=== PATIENT | female | born 1940 | race Caucasian/White ===

== ENCOUNTER 2019-05-21 08:28 | Inpatient (IN) | payer MEDICARE, MEDICAID ==
[~2019-05-21] VITALS: Ht 162.6 cm; Wt 85.0 kg
--- NOTE | ~2019-05-21 | HEMODYNAMI ---
PATIENT:ELAN KEYS MEDICAL RECORD: [id number] : 40 LOCATION:D.CAT ADMISSION DATE: 05/21/19 Generatedon:05/21/201911:31 Patient name: ELAN KEYS Patient #: [id number] SSN: [id number] : 1940 Date of study: 05/21/2019 Page: Of Hemodynamic Procedure Report Patient Data Patient Demographics Procedure consent was obtained First Name: ELAN Gender: Female Last Name: LUDMILA : 1940 Middle Initial: L Age: 79 year(s) Patient #: [id number] Race: Unknown SSN: [id number] Additional ID: [id number] Contact details [address]: [address] [place] [address] State: [place] City: [place] Zip code: [address] Past Medical History Allergies Allergen Reaction Date Comments Reported Other allergy 05/21/2019 iodine/pcn/adhesive tape Admission Admission Data Admission Date: 05/21/2019 Admission Time: 8:28 Arrival Date: 05/21/2019 Arrival Time: 0:00 Admit Source: Other Insurance Payor: Medicare [facility] #: [id number] Height (in.): 64.17 BSA: 1.91 (m2) Height (cm.): 163 BMI: 31.99 (kg/m2) Weight (lbs.): 187.39 Weight (kg.): 85 Lab Results Lab Result Date: 05/21/2019 Lab Result Time: 0:00 Biochemistry Name Units Result Min Max BUN mg/dl 42 --(----)-* 7 18 Creatinine mg/dl 2.2 --(----)-* 0.6 1.3 eGFR ml/min 23 *-(----)-- 90 120 NONAFRICAN CBC Name Units Result Min Max Hematocrit % 25.3 *-(----)-- 42 54 Hemoglobin g/dl 7.8 *-(----)-- 13.5 17.5 Procedure Procedure Types Cath Procedure Diagnostic Procedure [facility] w/Coronaries w/Grafts Sedation Charges Moderate Sedation up to 15 minutes Procedure Description Procedure Date Procedure Date: 05/21/2019 Procedure Start Time: 11:17 Procedure End Time: 11:29 Procedure Staff Name Function Ravindra Rodríguez MD Performing Physician Ariadna Rincon RT Monitor Kelsey Chago RT Scrub Scooter Haile RN Nurse Procedure Data Cath Procedure Fluoroscopy Diagnostic fluoroscopy Total fluoroscopy Time: 3.1 time: 3.1 min min Diagnostic fluoroscopy Total fluoroscopy dose: 484 dose: 484 mGy mGy Contrast Material Contrast Material Type Amount (ml) Isovue 300 37 Entry Location Entry Primary Successful Side Size Upsize Upsize Entry Closure Succes sful Closure Location (Fr) 1 (Fr) 2 (Fr) Remarks Device Remarks Femoral Right 5 Fr Exoseal artery Estimated blood loss: 5 ml Diagnostic catheters Device Type Used For End Catheter Placement MULTIPACK Pigtail 5 Fr LV Angiography catheter MULTIPACK JL 4.0 5Fr Left Coronary catheter Angiography MULTIPACK 3DRC 5Fr Procedure catheter DIAGNOSTIC AR2 MOD 5 Fr Procedure catheter ([id number]) Procedure Complications No complications Procedure Medications Medication Administration Route Dosage 0.9% NaCl I.V. 150 ml/hr Oxygen etCO2 Nasal cannula 2 l/min Heparin Flush Bag added to field 2 bags (1000units/500ml NS) Lidocaine 2% added to field 20 Versed I.V. 1 mg Fentanyl I.V. 50 mcg Versed I.V. 0.5 mg Hemodynamics Rest BSA: 1.91 (m2) O2 Consumption: Estimated: 259.76 (ml/min) O2 Consumption indexed : Estimated:136 (ml/min/m) Pre Cath Intra NCS Post Cath Vital Signs Time Heart Resp SPO2 etCO2 NIBP Rhythm Pain Sedation Rate (ipm) (%) (mmHg) (mmHg) Status Level (bpm) 11:12:00 74 14 93 0 124/53(78) NSR 0 (11) 10(A) , No pain 11:16:16 76 14 94 0 108/49(70) NSR 0 (11) 10(A) , No pain 11:20:36 71 12 95 0 115/59(87) NSR 0 (11) 10(A) , No pain 11:24:58 76 14 93 0 110/57(83) NSR 0 (11) 10(A) , No pain 11:29:16 73 14 93 0 117/64(81) NSR 0 (11) 10(A) , No pain Medications Time Medication Route Dose Verified Delivered Reason Notes Eff ectiveness by by 11:08:53 0.9% NaCl I.V. 150 Scooter Scooter Per ml/hr Mic Haile physician RN RN 11:09:06 Oxygen etCO2 2 Scooter Scooter for low 02 Nasal l/min Lorigan Lorigan sats cannula RN RN 11:09:19 Heparin Flush added 2 Scooter Scooter used for Bag to bags Lorigan Mic procedure (1000units/500ml field RN RN NS) 11:09:31 Lidocaine 2% added 20ml Scooter Scooter for local to vial Lorigan Lorigan anesthetic field RN RN 11:14:00 Versed I.V. 1 mg Scooter Scooter for Lorigan Lorigan sedation RN RN 11:14:09 Fentanyl I.V. 50 Scooter Scooter for mcg Lorigan Lorigan sedation RN RN 11:18:32 Versed I.V. 0.5 Scooter Scooter for mg Lorigan Lorigan sedation RN yam curer Log Time Note 10:27:31 Informed consent obtained and on chart 10:27:49 Procedure Status Elective Heart Cath (OP). 10:27:50 Time tracking: Regular hours (M-F 7:00 - 5:00) 10:27:53 Plan of Care:Hemodynamics will remain stable., Cardiac rhythm will remain stable., Comfort level will be maintained., Respiratory function will remain adequate., Patient/ family verbilizes understanding of procedure., Procedure tolerated without complication., Recovers from procedure without complications.. 10:27:54 Scooter Haile RN sent for patient. Start room use. 10:28:01 H&P Date Dictated: 05/15/2019 Within 30 days and on chart., H&P Addendum completed by physician on day of procedure. (MUST COMPLETE FOR ALL OUTPATIENTS). 10:43:14 Patient allergic to Other allergyiodine/pcn/adhesive tape 10:43:23 Is the patient allergic to Iodine/contrast media? has an adverse reaction, needs pre and post treatment with fluids. 10:43:28 Patient diabetic? Yes. 10:43:39 Risk of Mortality: 1.1 10:43:44 Risk of blood transfusion: 35.1 10:43:50 Risk of GEETA: 12.7 10:46:28 Arrival Date: 05/21/2019 12:00:00 AM 10:46:43 Admit Source: Other 10:46:48 Insurance Payor : Medicare 10:46:52 Patient Height : 64.17 inches 10:46:56 Patient Weight : 187.39 lbs 10:48:53 Lab Result : BUN 42 mg/dl 10:48:53 Lab Result : Hematocrit 25.3 % 10:48:53 Lab Result : eGFR NONAFRICAN 23 ml/min 10:48:53 Lab Result : Creatinine 2.2 mg/dl 10:48:53 Lab Result : Hemoglobin 7.8 g/dl 10:51:31 Patient received from Pre/Post Procedure Room to CCL 1 Alert and oriented. Tansferred to table in Supine position. 10:51:34 Warm blankets applied, and sulaiman hugger turned on for patient comfort. 10:51:35 Correct patient and procedure confirmed by team. 10:51:35 ECG and BP/O2 sat monitors applied to patient. 10:53:02 Pre-procedure instructions explained to patient. 10:53:03 Pre-op teaching completed and patient verbalized understanding. 10:53:08 Family in patients room. 10:53:10 Patient NPO since Midnight. 11:03:47 ACC Patient presents with Stable Angina CCS Anginal Class 4--Inability to carry out any physical activity w/o angina. Angina may occur at rest. 11:04:07 Is patient on blood thinner?No 11:04:14 Was the patient premedicated? No fluids have been given. 11:04:46 If diabetic: On Metformin? No 11:04:49 ----Pre-sedation anethsthesia assessment.---- 11:04:53 Previous problem with sedation/anesthesia? No ? 11:04:56 Snore? Yes 11:04:59 Sleep apnea? No 11:05:02 Deviated septum? No 11:05:04 Opens mouth fully? Yes 11:05:07 Sticks out tongue? Yes 11:05:11 Airway obstruction? No ? 11:05:15 Dentures? Yes ?both in. 11:05:53 IV patent on arrival in right antecubital with 0.9% NaCl at [facility]. 11:06:21 Lab results completed and on chart. 11:06:32 Stress Test: no; N/A ? 11:06:45 Pre procedure: right dorsailis pedis pulse Doppler 11:06:53 Right groin area was prepped with chlora-prep and draped in sterile fashion 11:06:54 Alarms reviewed by R. N. 11:06:55 Sharps counted by scrub and verified by R.N. 11:08:44 Use device set Femoral Dx 11:08:46 ACIST Syringe (00363) opened to sterile field. 11:08:47 Bag Decanter (2002S) opened to sterile field. 11:08:48 Medline Cath Pack ([id number]) opened to sterile field. 11:08:49 ACIST Hand Control (08734) opened to sterile field. 11:08:50 ACIST Manifold (97031) opened to sterile field. 11:08:51 DIAGNOSTIC Multipack 5Fr catheter set ([id number]) opened to sterile field. 11:08:52 Tegaderm 4 x 4 (1626W) opened to sterile field. 11:08:53 0.9% NaCl 150 ml/hr I.V. was administered by Scooter Haile RN; Per physician; Verbal order read back and verified. 11:08:54 SHEATH 5FR [place] (XUO466) opened to sterile field. 11:08:54 EMERALD Guide Wire (382-924) opened to sterile field. 11:09:06 Oxygen 2 l/min etCO2 Nasal cannula was administered by Scooter Haile RN; for low 02 sats; Verbal order read back and verified. 11:09:19 Heparin Flush Bag (1000units/500ml NS) 2 bags added to field was administered by Scooter Haile RN; used for procedure; Verbal order read back and verified. 11:09:31 Lidocaine 2% 20ml vial added to field was administered by Scooter Haile RN; for local anesthetic; Verbal order read back and verified. 11:09:43 Vital chart was started 11:09:57 Zero performed for pressure channel P1 11:10:29 Zero performed for pressure channel P1 11:10:48 Physician arrived 11:10:49 --------ALL STOP TIME OUT------ 11:10:50 Final Timeout: patient, procedure, and site verified with staff and physician. All members of the team are in agreement. 11:10:53 Right groin site verified by team. 11:11:00 Fire Safety Assessment: A--An alcohol-based skin anteseptic being used preoperatively., C--Open oxygen or nitrous oxide is being used., D--An ESU, laser, or fiber-optic light is being used. 11:11:08 Physical assessment completed. ASA score P 2 - A patient with mild systemic disease as per Ravindra Rodríguez MD. 11:11:14 4) 15-29 [place]ley reduced kidney function. 11:11:19 Maximum allowable contrast dose (3.7 X eGFR X 0.75)64 ml. 11:11:43 Sedation plan: IV Moderate Sedation Medication:Versed, Fentanyl 11:14:00 Versed 1 mg I.V. was administered by Scooter Haile RN; for sedation; Verbal order read back and verified. 11:14:09 Fentanyl 50 mcg I.V. was administered by Scooter Haile RN; for sedation; Verbal order read back and verified. 11:16:54 Procedure started. 11:16:54 Full Disclosure recording started 11:17:21 Local anesthetic to right femoral artery with Lidocaine 2% by Ravindra Rodríguez MD.INITIAL ACCESS ONLY 11:17:50 A 5 Fr sheath was inserted into the Right Femoral artery 11:18:32 Versed 0.5 mg I.V. was administered by Scooter Haile RN; for sedation; Verbal order read back and verified. 11:18:40 A MULTIPACK Pigtail 5 Fr catheter was advanced over the wire and used for LV Angiography. 11:20:00 Catheter removed. 11:20:08 A MULTIPACK JL 4.0 5Fr catheter was advanced over the wire and used for Left Coronary Angiography. 11:20:18 LCA angiography performed. 11:20:23 Injector settings: Ml/sec: 3, Volume: 6, 11:20:33 Catheter removed. 11:21:14 A MULTIPACK 3DRC 5Fr catheter was advanced over the wire and used for Procedure. 11:21:44 LINK to LAD angiography performed. 11:22:10 Catheter removed. 11:22:26 A DIAGNOSTIC AR2 MOD 5 Fr catheter ([id number]) was advanced over the wire and used for Procedure. 11:23:07 SVG to RCA angiography performed. 11:23:47 SVG to Circ angiography performed. 11:23:51 Catheter removed. 11:24:06 EXOSEAL 5Fr (EX500) opened to sterile field. 11::24 Sheath removed intact; hemostasis achieved with Exoseal to the Right Femoral artery. 11:24:43 Procedure ended.(Physican Out) 11::54 Fluoroscopy time 03.10 minutes. 11:26:02 Contrast amount:Isovue 300 37ml. 11::06 Maximum allowable dose exceeded? No. 11:: Sharps counted by scrub and verified by R.N. 11:: Fluoroscopy dose: 484 mGy 11:: Flurop Dose total: 484 11:: Dose Area Product 88918 mGy/cm. 11:26:37 Insertion/operative site no bleeding no hematoma. 11:26:46 Post-op/insertion site Right Femoral artery dressed using a 4 x 4 and Tegaderm. 11:26:53 Post right femoral artery:stable 11::57 Post Procedure Pulses reassessed and unchanged 11:27:02 Post-procedure physical assessment completed. ASA score P 2 - A patient with mild systemic disease as per Ravindra Rodríguez MD. 11:27:07 Post procedure rhythm: unchanged. 11:27:23 Estimated blood loss: 5 ml 11:27:25 Post procedure instruction explained to patient.Patient verbalizes understanding. 11:27:26 Patient needs reinforcement of post procedure teaching. 11:28:06 Procedure type changed to Cath procedure, Diagnostic procedure, LHC, LHC w/Coronaries w/Grafts, Sedation Charges, Moderate Sedation up to 15 minutes 11::49 Procedure and supply charges have been captured, reviewed, submitted and are correct. 11:29:29 Procedure Complication : No complications 11:29:32 Vital chart was stopped 11::[address] [facility] Findings: mild to moderate CAD (<70%) 11:29:38 Operative report dictated upon procedure completion. 11:29:39 See physician's report for complete and final results. 11:29:41 Report given to Pre/Post Procedure Room. 11:29:46 Patient transfered to Pre/Post Procedure Room with Stretcher. 11:29:49 Procedure ended. 11::49 Full Disclosure recording stopped 11:29:52 End room use (Document Last) Device Usage Item Name Manufacture Quantity Catalog Hospital Part Current Minimal L ot# / Number Charge Number Stock Stock Serial# Code ACIST Acist 1 32569 [id number] 489464 269251 20 Syringe Medical (23270) Systems Inc Bag Microtek 1 2001S 686623 80684 498197 5 Decanter Medical Inc. () Medline Medline 1 [id number] 906098 88910 266608 5 Cath Pack ([id number]) ACIST Hand Acist 1 25603 320046 030652 485055 5 Control Medical (13963) Systems Inc ACIST Acist 1 62289 250733 785507 570249 5 Manifold Medical (00215) Systems Inc DIAGNOSTIC Cardinal 1 [id number] 665381 10286 689895 30 Multipack Health 5Fr catheter set (NT4285) Tegaderm 4 3M 1 1626W 668206 167361 386530 5 x 4 (1626W) SHEATH 5FR Terumo 1 [id number] 547470 104787 460741 5 [place] (DTO269) EMERALD Cardinal 1 502-455 807308 167839 550600 5 Guide Wire Health (502-455) MULTIPACK Cardinal 1 812733 5 Pigtail 5 Health Fr catheter MULTIPACK Cardinal 1 031819 5 JL 4.0 5Fr Health catheter MULTIPACK Cardinal 1 346600 5 3DRC 5Fr Health catheter DIAGNOSTIC Cardinal 1 [id number] 155574 786729 247122 20 AR2 MOD 5 Health Fr catheter (903179D) EXOSEAL 5Fr Cardinal 1 EX500 990063 819281 840133 10 (EX500) Health Signature Audit [place] Stage Time Signature Unsigned Intra-Procedure 05/21/2019 Ariadna 11:30:53 AM Sergey RT(R) (CV) Intra-Procedure 05/21/2019 Scooter 11:31:22 AM Mic SARMIENTO Intra-Procedure 05/21/2019 Ravindra Rodríguez 11:31:[address] [place] [address]
--- NOTE | ~2019-05-21 | EC ---
PATIENT:ELAN KEYS DATE OF SERVICE: 05/21/19 SEX: F MEDICAL RECORD: [id number] DATE OF : [birth year] LOCATION:D.MS [place] AGE OF PATIENT: 79 ADMISSION DATE: 05/21/19 REFERRING PHYSICIAN: INTERPRETING PHYSICIAN: JUDITH RODRÍGUEZ MD ECHOCARDIOGRAM REPORT ECHO CHARGES 4 ECHO COMPLETE Date: 05/21/19 CLINICAL DIAGNOSIS: DYSPNEA/ANGINA/CAD H/O AVR ECHOCARDIOGRAPHIC MEASUREMENTS (adult normal given) AC root (d.<3.7cm) 2.5 cm LV Septum d (<1.2 cm> 0.7 cm Valve Excursion 0.6 cm LV Septum (systole) 1.0 cm Left Atria (s.<4.0cm> 5.1 cm LVPW d(<1.2cm) 0.9 cm RV (d.<2.3cm) 2.4 cm LVPW (sytole) 1.8 cm LV diastole(<5.6CM) 6.1 cm MV E-F(>70mm/sec) cm LV systole 4.2 cm LVOT Diameter 1.6 cm MV exc.(>10mm) cm Est.ejection fraction (50-75%) % DOPPLER: LVIT cm/sec A 156 cm/sec E 181 cm/sec LA cm/sec RVSP 51.0 mmHg LVOT 100 cm/sec AOP1/2T m/s Asc. Ao 287 cm/sec RVOT 52.0 cm/sec RA cm/sec PA 122 cm/sec AV Gradient Peak 33.0 mmHg AV Mean 18.0 mmHg AV Area 0.6 cm MV Gradient Peak 22.2 mmHg MV Mean 9.0 mmHg MV Area cm COMMENTS: Engineering Secretary: 1 AMERICA MCCALLUMOE Play Leader: 1 Dr. Rodríguez TAPE# PACS Pericardial Effusion N DATE OF SERVICE: FINDINGS: 1. Left ventricular chamber size is mildly dilated. Left ventricular systolic function is moderately reduced at 35% to 40%. 2. Left atrium is enlarged at 5.1 cm. Right atrium and right ventricular chamber sizes are within normal limits. 3. 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 The valve area calculates to 0.6 cm-squared. There is a gradient of 33 mm across the valve. The remaining ECHOCARDIOGRAM REPORT [id number] ELAN KEYS valvular structures have normal structure and motion. 4. Doppler interrogation elsewise reveals mild mitral regurgitation, mild tricuspid regurgitation, no other valvular insufficiency or stenosis. Pulmonary systolic pressure is elevated at 51 mmHg. 5. No evidence of pericardial effusion or left ventricular thrombus. TRANSINT:[id number] Voice Confirmation ID: [id number] DOCUMENT ID: [id number] JUDITH RODRÍGUEZ MD CC: [id number] DICTATION DATE: 05/21/19 1022 MAKEUP EDITOR: 05/21/19 1451 [facility] [address] [place] [address]
[~2019-05-21 08:28] MED LIST: BABY ASPIRIN81 MG PO; BUMEX2 MG PO; CARDURA1 MG PO; CRESTOR20 MG PO; DAILY MULTIVITA1 TA1 PO; DESYREL50 MG PO; EPIKLOR20 MEQ; FISH OIL 1,2001 CA1 PO; GLUCOTROL 5 MG T5 MG PO; IMDUR60 MG PO; LEVAQUIN250 MG PO; MEGACE400 MG/10 PO; NITROSTAT0.4 MG SL; NORVASC5 MG PO; PACERONE200 MG PO; PEPCID AC20 MG PO; PEPCID20 MG PO; SYSTANE 0.3-0.4%5 ML EACH EYE; ZETIA10 MG PO
[2019-05-21] MEDS ORDERED: BYSTOLIC5 MG PO (09:38)
[2019-05-21] MEDS ORDERED: LASIX40 MG PO (09:42)
[2019-05-21] MEDS ORDERED: ULORIC40 MG PO (09:43)
[2019-05-21] MEDS ORDERED: VITAMIN E600 UNIT PO (09:44)
[2019-05-21] MEDS ORDERED: MUCINEX600 MG PO (09:45)
[2019-05-21] MEDS ORDERED: ACETAMINOPHEN500 M1 PO (09:46)
[2019-05-21 09:54] LABS: BASOPHILS 0.6 % (0-2); EOSINOPHILS 1.8 % (0-7); HEMATOCRIT 25.3 % (36.0-48.0); HEMOGLOBIN 7.8 g/dL (12-16); IMMATURE GRANULOCYTES 0.1 % (0-5); LYMPHOCYTES 15.1 % (15-50); MCH 26.4 pg (26.0-34.0); MCHC 30.8 g/dL (31.0-37.0); MCV 85.5 fL (80.0-100.0); MEAN PLATELET VOLUME 8.8 fL (7.4-10.4); MONOCYTES 9.4 % (2-11); RBC 2.96 10x6/uL (4.00-5.40); RDW 14.8 % (11.5-14.5); WBC 6.8 10x3/uL (4.8-10.8)
[2019-05-21 09:55] VITALS: BP 129/54; BMI 32.1
[2019-05-21 10:15] LABS: CALCIUM 9.6 mg/dL (8.5-10.1); CARBON DIOXIDE 24.8 mmol/L (21.0-32.0); CREATININE - SERUM 2.2 mg/dL (0.6-1.3); LDL-HDL RATIO 0.5 ratio (1.5-3.5); POTASSIUM - SERUM 4.8 mmol/L (3.5-5.1)
[2019-05-21 10:19] LABS: PLATELET COUNT 201 10x3/uL (130-400)
--- NOTE | 2019-05-21 11:38 | NUR ---
PT ARRIVED BY STRETCHER. PLACED ON MONITORS. ASSESSMENT COMPLETED. VSS. NO FAMILY AT BEDSIDE. CALL LIGHT WITHIN REACH.
--- NOTE | 2019-05-21 11:53 | NUR ---
RIGHT GROIN DRESSING C/D/I. NO S/S OF HEMATOMA NOTED. CALL LIGHT WITHIN REACH. VSS. TOLERATING SIPS OF WATER. DENIES NAUSEA AT THIS TIME.
--- NOTE | 2019-05-21 12:27 | NUR ---
PT RESTING COMFORTABLY. RIGHT GROIN DRESSING C/D/I. NO S/S OF HEMATOMA NOTED. HEAD OF BED INC TO 30 DEGREES. TOLERATED WELL. PT UNABLE TO USE BEDPAN TO VOID. PLACED PUREWICK TO MELISSA-AREA UNTIL PT IS ABLE TO BE OFF BEDREST TO VOID.
--- NOTE | 2019-05-21 12:50 | NUR ---
FIRST UNIT OF PRBC STARTED TO RIGHT AC 20 PIV. TOLERATING WELL. NO S/S OF DISTRESS NOTED. STARTED AT 50cc/HR.
--- NOTE | 2019-05-21 13:12 | NUR ---
PT TOLERATING PRBC INFUSION. INC RATE TO 75cc/HR. HR 68 BP 120/64.
--- NOTE | 2019-05-21 13:40 | NUR ---
PT RESTING COMFORTABLY. RIGHT GROIN DRESSING C/D/I. NO S/S OF HEMATOMA NOTED. CALL LIGHT WITHIN REACH. PT TOLERATING PRBC INFUSION. INC RATE TO 100CC/HR. NO S/S OF DISTRESS NOTED.
--- NOTE | 2019-05-21 14:00 | NUR ---
PT UP TO BEDSIDE COMMODE. VOIDED WITHOUT DIFFICULTY. TOLERATED WELL. RIGHT GROIN DRESSING C/D/I. NO S/S OF HEMOTOMA NOTED. RIGHT PEDAL PULSE PALPALBE. RIGHT LEG WARM TO TOUCH. INC PRBCs TO 125CC/HR. TOLERATING WELL. HER FRIEND IS AT BEDSIDE. INFORMED HER OF ROOM NUMBER [id number]. GAVE HER PHONE NUMBER TO NURSES STATION AND PT'S ROOM.
--- NOTE | 2019-05-21 14:05 | NUR ---
CALLED REPORT TO BART MORAES ON MED/SURG.
[2019-05-21 14:18] LABS: % SATURATION 10 % (15-55); IRON 30 ug/dl (35-150); TOTAL IRON BIND CAPACITY 287 ug/dl (260-445); UNSAT IRON BIND CAPACITY 257 ug/dl (150-375)
--- NOTE | 2019-05-21 14:40 | NUR ---
PT TRANSPORTED TO ROOM 2229 BY WHEELCHAIR. NO S/S OF DISTRESS NOTED. FIRST UNIT PRBC INFUSING. TOLERATING WELL. RIGHT RIGHT AC PIV.
--- NOTE | 2019-05-21 15:42 | NUR ---
I have reviewed this patient and I concur with the Shift Assessment completed by the Licensed Practical Nurse today this shift.
[2019-05-21 17:24] VITALS: BP 127/42
--- NOTE | 2019-05-22 06:15 | NUR ---
2000 THIRD UNIT PRBC'S HUNG VIA CHICHI CABRERA. LUDA ASSISTED UP BSC VOIDED LGE AMT.RICK LARES BLOOD CONTINUES TO INFUSE NO SIGNS OR SYMPTOMS OF TRANSFUSION REATION.
[2019-05-22 06:35] VITALS: BP 127/42; BMI 32.2
[2019-05-22 09:29] LABS: BASOPHILS 0.4 % (0-2); EOSINOPHILS 2.1 % (0-7); IMMATURE GRANULOCYTES 0.6 % (0-5); LYMPHOCYTES 11.9 % (15-50); MCH 26.1 pg (26.0-34.0); MCV 87.1 fL (80.0-100.0); MEAN PLATELET VOLUME 9.9 fL (7.4-10.4); MONOCYTES 7.3 % (2-11); NEUTROPHILS 77.7 % (40-80); RDW 14.8 % (11.5-14.5)
[2019-05-22 09:32] VITALS: BP 139/92
[2019-05-22 09:33] LABS: HEMOGLOBIN 11.7 g/dL (12-16); PLATELET COUNT 134 10x3/uL (130-400); RBC 4.48 10x6/uL (4.00-5.40); WBC 10.2 10x3/uL (4.8-10.8)
[2019-05-22 09:36] LABS: BACTERIA NONE SEEN /hpf (NEGATIVE); BILIRUBIN NEGATIVE (NEGATIVE); EPITHELIAL CELLS 0-5 /hpf (0-5); GLUCOSE NEGATIVE (NEGATIVE); KETONE NEGATIVE (NEGATIVE); NITRITE NEGATIVE (NEGATIVE); RED CELLS - URINE NONE SEEN /hpf (0-5); UROBILINOGEN NORMAL (NORMAL); WHITE CELLS - URINE OCC /hpf (NEGATIVE)
--- NOTE | 2019-05-22 12:16 | NUR ---
PT HAS ORDERS FOR ONE TIME IRON, AFTER SCANNING IRON, NOTICE PT IV IS OUT, ATTEMPTED TO GAIN IV ACCESS 3 TIMES ON PT AND VEIN BLEW EACH TIME. PLACED CONSULT FOR VASCULAR ACCESS NURSE. NO OTHER NEEDS AT THIS TIME FROM PT, WILL CONTINUE WITH PLAN OF CARE
[2019-05-22 12:40] VITALS: BP 122/59
[2019-05-22 12:49] VITALS: Ht 162.6 cm; Wt 85.0 kg
--- NOTE | 2019-05-22 15:35 | NUR ---
I have reviewed this patient and I concur with the Shift Assessment completed by the Licensed Practical Nurse today this shift.
[2019-05-22 16:53] VITALS: BP 132/55
[2019-05-22 21:19] LABS: ANION GAP 11.1 mmol/L (8-16); CALCIUM 8.7 mg/dL (8.5-10.1); CARBON DIOXIDE 24.9 mmol/L (21.0-32.0)
--- NOTE | 2019-05-23 02:52 | NUR ---
I have reviewed this patient and I concur with the Shift Assessment completed by the Licensed Practical Nurse today this shift.
[2019-05-23 04:00] VITALS: BP 142/70
[2019-05-23 08:17] VITALS: BP 127/53
[2019-05-23 13:52] VITALS: BP 137/66
--- NOTE | 2019-05-24 11:44 | MORECARE ---
CASE MANAGEMENT DISCHARGE SUMMARY PATIENT: ELAN KEYS UNIT: [id number] ADM DATE: 05/21/19 AGE: 79 : 40 SEX: F ROOM/BED: D.2229 AUTHOR: MARLON HAJI PHYSICIAN: REFERRING PHYSICIAN: JUDITH GALVEZ MD DATE OF SERVICE: 05/24/19 Discharge Plan [facility] Name[facility] 1940 Planned Disposition: Anticipated Discharge Date: Discharge Date: 05/23/2019 Expected LOS: 0 Initial Reviewer: [email or web address] Initial Review Date: 05/24/2019 Generated: 05/24/19 12:44 pm Patient Name: ELAN KEYS Page [phone] at 1144 All edits/amendments must be made on the electronic document DICTATION DATE: 05/24/19 1144 DISTRIBUTED GENERATION PROJECT MANAGER: BEN 05/24/19 1144 RPT#: [id number] DC DATE:05/23/19 STATUS: DIS IN [facility] [address] [place] [address] END OF REPORT
== END 2019-05-23 17:19 | disposition home or self-care (01) | DRG 812 ==
LOC: D.MS 08:28 → D.CATH 08:28 → D.ECHO 10:00 → D.CATH 10:30 → D.MS 14:44 → D.CATH 18:31 → D.MS 18:32
PROVIDERS: Internal Medicine Cardiovascular Disease; Internal Medicine Hematology & Oncology; Internal Medicine Nephrology; ADMIT Internal Medicine Interventional Cardiology; ATTEND Internal Medicine Interventional Cardiology
PROC: B2111ZZ Fluoroscopy of Multiple Coronary Arteries using Low Osmolar Contrast (ICD-10-PCS; 2019-05-21)
PROC: B2151ZZ Fluoroscopy of Left Heart using Low Osmolar Contrast (ICD-10-PCS; 2019-05-21)
PROC: 4A023N7 Measurement of Cardiac Sampling and Pressure, Left Heart, Percutaneous Approach (ICD-10-PCS; 2019-05-21)
PROC: B2131ZZ Fluoroscopy of Multiple Coronary Artery Bypass Grafts using Low Osmolar Contrast (ICD-10-PCS; principal; 2019-05-21 10:30)
DX: D50.9 Iron deficiency anemia, unspecified (principal); K92.2 Gastrointestinal hemorrhage, unspecified; I25.110 Atherosclerotic heart disease of native coronary artery with unstable angina pectoris; I50.20 Unspecified systolic (congestive) heart failure; I11.0 Hypertensive heart disease with heart failure; Z95.2 Presence of prosthetic heart valve; K21.9 Gastro-esophageal reflux disease without esophagitis; E11.9 Type 2 diabetes mellitus without complications